=== PATIENT | female | born 2000 | race Hispanic/Latino ===

== ENCOUNTER 2025-05-24 09:53 | Day surgery (SDC) | payer OTHER | END 2025-05-24 11:59 | disposition home or self-care (01) | LOC: CSHLD/OP 09:53 | PROVIDERS: ATTEND Family Medicine | DX: O24.414 Gestational diabetes mellitus in pregnancy, insulin controlled (principal); O23.593 Infection of other part of genital tract in pregnancy, third trimester; B96.89 Other specified bacterial agents as the cause of diseases classified elsewhere; O98.813 Other maternal infectious and parasitic diseases complicating pregnancy, third trimester; B37.9 Candidiasis, unspecified; Z3A.33 33 weeks gestation of pregnancy | CPT/HCPCS: 59025; 76819; 87480; 87510; 87660; 99284 ==

== ENCOUNTER 2025-06-03 14:16 | Emergency (ER) | payer OTHER | END 2025-06-03 18:46 | disposition home or self-care (01) | LOC: CSHERS 14:16 | DX: O99.713 Diseases of the skin and subcutaneous tissue complicating pregnancy, third trimester (principal); L02.415 Cutaneous abscess of right lower limb; O24.419 Gestational diabetes mellitus in pregnancy, unspecified control; Z3A.38 38 weeks gestation of pregnancy | CPT/HCPCS: 10060 ==